=== PATIENT | female | born 1965 | race Caucasian/White ===

== ENCOUNTER → 2020-05-08 11:31 | Outpatient (CLI) | payer OTHER, SELFPAY ==
--- NOTE | ~2020-05-08 | US_ITS ---
EXAMINATION: US pelvic complete w TV EXAM DATE: 05/08/2020 11:59 INDICATION: Postmenopausal bleeding. Ablation. TECHNIQUE: Pelvic transabdominal and transvaginal sonogram was performed. There are multiple graysca le and Doppler images available for interpretation. There is no prior study for comparison. FINDINGS: Uterus measures 9.6 x 4.6 x 5.0 cm, possible identification of small posterior myometrial fibroid measuring about 2 cm. Endometrial stripe measures 6-7 mm, upper limits of normal. There is n o free pelvic fluid. Right adnexa: The ovary is not identified. There is no adnexal mass. Left adnexa: The ovary is not identified. There is no adnexal mass. IMPRESSION: 1. Endometrium 6-7 mm, upper limits of normal. Follow-up pelvic ultrasound or histologic correlation can be obtained if symptoms persist. 2. Possible small fibroid. Reviewed, dictated and finalized at location A. AGENT
== END ==
DX: N95.0 Postmenopausal bleeding (principal)
CPT/HCPCS: 76830; 76856

== ENCOUNTER 2021-12-04 21:53 | Emergency (ER) | payer OTHER, SELFPAY ==
--- NOTE | ~2021-12-04 | XR_ITS ---
EXAMINATION: [id number] DATE: 12/05/2021 02:10 INDICATION: Lower left rib pain post fall TECHNIQUE: PA view of the chest and 3 views of the left ribs were obtained. COMPARISON: None FINDINGS: Subtle angulation at an age-indeterminate nondisplaced anterior left fifth rib fracture. No other rib fractures identified. No focal airspace opacities, pulmonary edema, pleural effusion or pneumothorax . Cardiomediastinal silhouette is normal. IMPRESSION: 1. Age-indeterminate nondisplaced anterior left fifth rib fracture Reviewed, dictated and finalized at location A.
[2021-12-04 22:33] VITALS: BP 120/62; PULSE 77; RESP 18; TEMP 36.4; O2SAT 100
[2021-12-05] VITALS (9 sets, daily range): BP systolic 115–146; BP diastolic 57–92; PULSE 70–78; RESP 16–19; O2SAT 95–100
--- NOTE | 2021-12-05 00:43 | ED.GENADULT ---
HPI - General Adult General Chief complaint: Fall Stated complaint: Fall, left rib pain Time Seen by Provider: 12/05/21 00:32 Source: RN notes reviewed History of Present Illness HPI narrative: Patient presents emergency department from home for left-sided rib pain. Patient states that on this past Monday, December 01 that she was at the [facility] when she tripped over some tubing and landed on a concrete barrier on her left ribs she denies striking her head or any other injury but states the barrier hit her chest underneath her left breast since that time she had pain in the left side of the ribs that is worse with deep inspiration she denies any abdominal pain she denies any extremity pain she states she did take ibuprofen earlier this evening for the pain with minimal relief Related Data Home Medications Medication Instructions Recorded Confirmed alprazolam 0.5 mg tablet (Xanax) 0.5 mg PO DAILY 11/15/19 11/15/19 topiramate 25 mg tablet mg 12/04/21 Allergies Allergy/AdvReac Type Severity Reaction Status Date / Time No Known Allergies Allergy Verified 12/04/21 22:36 Review of Systems Review of Systems: Gen.: Denies fevers or chills Eyes: Denies eye pain or visual change ENT: Denies facial injury Respiratory: Denies shortness of breath or cough CV: reports chest wall pain denies palpitation GI: Denies abdominal pain nausea, emesis Musculoskeletal: Denies back pain or muscle pain Neuro: Denies head injury or loss of consciousness Skin: Denies rash Except as documented, all other systems reviewed and negative FORMERLY [facility] Past Medical History Medical History Bicipital tendonitis of left shoulder 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 CARDIOVASCULAR: Regular rate and rhythm without murmurs rubs or gallops. Chest: Tender palpation of the left anterior ribs region of ribs 8 through 10 no sign ecchymosis pain increased with deep inspiration ABDOMINAL: Soft, nontender, nondistended, no rebound or guarding no tenderness in the left upper quadrant MUSCULOSKELETAl: Moves all extremities. No clubbing, cyanosis or edema. NEURO: Awake and alert. Following commands, speech normal, no focal deficits SKIN:: Warm, dry. No rashes lesions or abrasions PSYCHIATRIC: Normal affect/mood, Course Course Emergency Course: Discussed with patient results of workup and diagnosis. Discussed need for follow-up with primary care, proper use of medication, and reasons to return to the emergency department. Patient understands and agrees to current treatment plan. Discussed with patient my read of x-ray and over read by radiology in a.m. Vital Signs Vital signs: Vital Signs Temperature 97.5 F L 12/04/21 22:33 Pulse Rate 77 12/04/21 22:33 Respiratory Rate 18 12/04/21 22:33 Blood Pressure 120/62 12/04/21 22:33 Pulse Oximetry 100 12/04/21 22:33 Oxygen Delivery Room Air 12/04/21 22:33 Temperature 97.5 F L 12/04/21 22:33 Pulse Rate 77 12/04/21 22:33 Respiratory Rate 18 12/04/21 22:33 Blood Pressure 120/62 12/04/21 22:33 Pulse Oximetry 100 12/04/21 22:33 Oxygen Delivery Room Air 12/04/21 22:33 Medical Decision Making Vital Signs Vital Signs: Vital Signs Temperature 97.5 F L 12/04/21 22:33 Pulse Rate 77 12/04/21 22:33 Respiratory Rate 18 12/04/21 22:33 Blood Pressure 120/62 12/04/21 22:33 Pulse Oximetry 100 12/04/21 22:33 Oxygen Delivery Room Air 12/04/21 22:33 Temperature 97.5 F L 12/04/21 22:33 Pulse Rate 77 10/
[2021-12-05] MEDS: HYDROcodone/acetaminophen (*CRX) 5-325 MG TABLET 1 TAB PO (00:54)
== END 2021-12-05 02:01 | disposition home or self-care (01) ==
PROVIDERS: Emergency Provider Emergency Medicine
DX: S20.212A Contusion of left front wall of thorax, initial encounter (principal); Z87.891 Personal history of nicotine dependence; W18.09XA Striking against other object with subsequent fall, initial encounter
CPT/HCPCS: 71101; 99283; A9270

== ENCOUNTER 2023-08-13 20:04 | Emergency (ER) | payer OTHER, SELFPAY ==
--- NOTE | ~2023-08-13 | CT_ITS ---
CT of the Abdomen and Pelvis: Indication: Nausea and vomiting, constipation Technique: 2.5 mm axial scans were obtained through the abdomen and pelvis following intravenous adm inistration of 100 cc of Omnipaque 350. Dose reduction technique was used on this scan by utilizing a utomated exposure control and iterative reconstruction technique. The dose-length product (DLP) was 4 18.04 mGy-cm. Findings: Scans through the lung bases are unremarkable. The liver, spleen, pancreas, gallbladder, adrenals and left kidney are within normal limits. Probable right renal cyst present. No evidence of aortic aneurysm. No lymphadenopathy. No bowel obstruction or bowel wall thickening. There is no evidence to suggest acute appendicitis. Images through the pelvis were performed. Urinary bladder unremarkable. No adnexal mass seen. No asci marti. Probable chronic L1 compression fracture. Impression: No definite acute abnormality. Chronic L1 compression fracture. Reviewed, dictated and finalized at [facility]. Impression: No definite acute abnormality. Chronic L1 compression fracture.
[2023-08-13 20:08] VITALS: BP 129/84; PULSE 73; RESP 18; TEMP 36.8; O2SAT 100
[2023-08-13 20:40] LABS: Basophils Absolute Auto 0.1 K/mm3 (0.0-0.1); Basophils Percent Auto 0.6 % (0.2-1.2); Eosinophils Absolute Auto 0.1 K/mm3 (0-0.3); Eosinophils Percent Auto 1.3 % (0-4.4); Hematocrit 42.5 % (37.0-47.0); Hemoglobin 13.9 g/dL (12.0-15.0); Immature Granulocyte Absolute 0.02 K/mm3 (0.00-0.031); Immature Granulocyte Percent A 0.3 % (0-0.5); Lymphocytes Absolute Auto 2.53 K/mm3 (0.9-3.2); Lymphocytes Percent Auto 32.1 % (18.3-44.2); Mean Corpuscular HGB Conc 32.7 g/dl (32-36); Mean Corpuscular Hemoglobin 30.2 pg (26-34); Mean Corpuscular Volume 92.4 fl (80-100); Monocytes Absolute Auto 0.6 K/mm3 (0.1-0.6); Monocytes Percent Auto 7.4 % (2.6-8.5); Neutrophils Absolute Auto 4.6 K/mm3 (1.3-6.7); Neutrophils Percent Auto 58.3 % (45.5-73.1); Platelet Count Result 352 k/mm3 (150-375); Red Cell Distribution Width 14.3 % (11.5-14.5); White Blood Count 7.9 K/mm3 (4.5-10.0)
[2023-08-13 20:41] LABS: Appearance Urine Clear (Clear); Bilirubin Urine Negative (Negative); Blood Urine Negative (Negative); Color Urine Dark Yellow (Yellow); Glucose Urine UA Negative (Negative); Ketones Urine Trace mg/dL (Negative); Leukocyte Esterase Ur Negative LEU/UL (Negative); Nitrate Urine Negative (Negative); Protein Urine Negative (Negative); Specific Grav Ur 1.024 (1.001-1.035); Urobilinogen Urine 0.2 mg/dL (<2.0); pH Urine 5.5 (5.0-9.0)
[2023-08-13 20:49] LABS: Alanine Aminotransferase 31 U/L (6-35); Albumin Level 4.8 g/dL (3.5-5.1); Alkaline Phosphatase 67 U/L (38-126); Anion Gap 10 mmol/L (4-12); Aspartate Amino Transferase 39 U/L (14-36); Bilirubin,Total 0.5 mg/dL (0.2-1.3); Blood Urea Nitrogen 14 mg/dL (7-17); Calcium 9.6 mg/dL (8.4-10.2); Carbon Dioxide 25 mmol/L (22-30); Chloride 110 mmol/L (98-107); Estimated CRCL calculation 38 ml/min; Estimated Glomerular Filt Rate 46; Glucose 73 mg/dL (65-110); Lipase 77 U/L (23-300); Potassium 3.5 mmol/L (3.4-5.0); Sodium 145 mmol/L (137-145)
[2023-08-13 20:50] LABS: Add Urine Microscopic? NO
--- NOTE | 2023-08-13 21:15 | PC.NURSE ---
EDP Dr. Farideh NGUYEN 4mg zofran IVP.
[2023-08-13] MEDS: ONDANSETRON INJ 4 MG/2 ML VIAL IV PUSH (21:16)
--- NOTE | 2023-08-13 23:44 | ED.ABDPAIN ---
HPI - Abdominal Pain General Chief Complaint: Abdominal Pain Stated Complaint: N/V, constipation Time Seen by Provider: 08/13/23 20:47 History of Present Illness HPI narrative: Pt with h/o chronic constipation p/w constipation and mild distension/nausea. Takes daily stool softeners and already tried mg citrate Related Data Home Medications Medication Instructions Recorded Confirmed alprazolam 0.5 mg tablet (Xanax) 0.5 mg PO DAILY 11/15/19 11/15/19 topiramate 25 mg tablet mg 12/04/21 Allergies Allergy/AdvReac Type Severity Reaction Status Date / Time No Known Allergies Allergy Verified 12/04/21 22:36 Review of Systems Review of Systems: All systems reviewed & are unremarkable except as noted in HPI and below PMFSH Past Medical History Medical History Bicipital tendonitis of left shoulder Enchondroma of femur ( left leg) 01.28.20 Renal cyst Supraspinatus (muscle) (tendon) sprain Social History Social History (Updated 12/05/21 @ 00:45 by Delfino Turner, ) Smoking status: Former smoker Exam Narrative: EXAMINATION OF ORGAN SYSTEMS/BODY AREAS: Constitutional: Vital signs per nursing GENERAL:[No acute distress, non-toxic appearing.] HEAD: Normal with no signs of head trauma. EYES: EOMI, conjunctiva normal ENT: Hearing grossly intact LUNGS: Nonlabored breathing. HEART: [Regular rate and rhythm] ABD: [Soft], [nontender to palpation] EXT: Normal range of motion SKIN: [No rashes or lesions.] NEURO: [Alert and oriented x 3. No gross focal sensory or strength deficits.] PSYCH: Normal affect Course Vital Signs Vital signs: Vital Signs Temperature 98.2 F 08/13/23 20:08 Pulse Rate 73 08/13/23 20:08 Respiratory Rate 18 08/13/23 20:08 Blood Pressure 129/84 08/13/23 20:08 Pulse Oximetry 100 08/13/23 20:08 Oxygen Delivery Room Air 08/13/23 20:08 Temperature 98.2 F 08/13/23 20:08 Pulse Rate 73 08/13/23 20:08 Respiratory Rate 18 08/13/23 20:08 Blood Pressure 129/84 08/13/23 20:08 Pulse Oximetry 100 08/13/23 20:08 Oxygen Delivery Room Air 08/13/23 20:08 MDM - Abdominal Pain MDM Narrative Medical decision making narrative: 58F p/w constipation, has n/v and h/o abd surgery so CT A/P to r/o SBO, is neg for acute abnl Rx for dulcolax suppository provided and instructed to f/u with GI, pt agreeable to plan and return precautions Lab Data 08/13/23 20:27 08/13/23 20:27 Labs: Lab Results 08/13/23 Range/Units 20:27 WBC 7.9 (4.5-10.0) K/mm3 RBC 4.60 (4.2-5.4) M/mm3 Hgb 13.9 (12.0-15.0) g/dL Hct 42.5 (37.0-47.0) % MCV 92.4 (80-100) fl MCH 30.2 (26-34) pg MCHC 32.7 (32-36) g/dl RDW 14.3 (11.5-14.5) % Plt Count 352 (150-375) k/mm3 MPV 9.0 (7.4-10.4) fl Immature Gran % (Auto) 0.3 (0-0.5) % Neut % (Auto) 58.3 (45.5-73.1) % Lymph % (Auto) 32.1 (18.3-44.2) % Polk % (Auto) 7.4 (2.6-8.5) % Eos % (Auto) 1.3 (0-4.4) % Baso % (Auto) 0.6 (0.2-1.2) % Lymph # (Auto) 2.53 (0.9-3.2) K/mm3 Polk # (Auto) 0.6 (0.1-0.6) K/mm3 Eos # (Auto) 0.1 (0-0.3) K/mm3 Baso # (Auto) 0.1 (0.0-0.1) K/mm3 Abs Immat Gran (auto) 0.02 (0.00-0.031) K/mm3 Absolute Neuts (auto) 4.6 (1.3-6.7) K/mm3 Absolute Nucleated RBC 0.000 (0.0-0.012) K/mm3 Nucleated RBC % 0.0 (0.0-0.2) % Sodium 145 (137-145) mmol/L Potassium 3.5 (3.4-5.0) mmol/L Chloride 110 H (98-107) mmol/L Carbon Dioxide 25 (22-30) mmol/L Anion Gap 10 (4-12) mmol/L BUN 14 (7-17) mg/dL Creatinine 1.20 H (0.7-1.0) mg/dL Estim Creat Clear Calc 38 ml/min Estimated GFR 46 L (59 - ) Glucose 73 (65-110) mg/dL Calcium 9.6 (8.4-10.2) mg/dL Total Bilirubin 0.5 (0.2-1.3) mg/dL AST 39 H (14-36) U/L ALT 31 (6-35) U/L Alkaline Phosphatase 67 (38-126) U/L Total Protein 8.0 (6.3-8.2) g/dL Albumin 4.8 (3.5-5.1) g/dL Lipas
== END 2023-08-13 22:23 | disposition home or self-care (01) ==
PROVIDERS: Emergency Provider Emergency Medicine
DX: K59.09 Other constipation (principal)
CPT/HCPCS: 36415; 74177; 80053; 81003; 83690; 85025; 96374; 99284; J2405; Q9967